=== PATIENT | female | born 1985 | race Caucasian/White ===

== ENCOUNTER 2018-11-30 03:29 | Inpatient (IN) | payer OTHER ==
[~2018-11-30] VITALS: Ht 165.1 cm; Wt 75.6 kg
[2018-11-30 03:42] VITALS: BP 116/70; PULSE 69; RESP 17; Ht 165.1 cm; Wt 75.6 kg
[2018-11-30] MEDS ORDERED: LACTATED RINGER'S 1,000 ML IV PRN (03:44)
[2018-11-30] MEDS ORDERED: BUTORPHANOL 2 MG INJ IV PRN (04:00)
[2018-11-30] MEDS ORDERED: MISOPROSTOL 200 MCG TAB PR PRN ×2 (04:00→17:30)
[2018-11-30] MEDS ORDERED: OXYTOCIN 30 UNITS/LR 500 ML IV PRN ×2 (04:00→17:30)
[2018-11-30] MEDS ORDERED: METHYLERGONOVINE 0.2 MG INJ IM PRN ×2 (04:00→17:30)
[2018-11-30] MEDS ORDERED: CARBOPROST 250 MCG INJ IM PRN ×2 (04:00→17:30)
[2018-11-30] MEDS ORDERED: OXYTOCIN 30 UNITS/LR 500 ML IV SCH ×3 (04:00)
[2018-11-30] MEDS ORDERED: LIDOCAINE 1% (MPF) 30 ML INJ INJ PRN (04:00)
[2018-11-30] MEDS ORDERED: NALOXONE (0.4 MG/ML) INJ IV PRN (04:30)
[2018-11-30] MEDS ORDERED: FENTAnyl 2MCG/ML-ROPIV 0.2% 100 ML BAG EPI SCH (04:30)
--- NOTE | 2018-11-30 04:30 | PREAC ---
Date/Time of Note Date/Time of Note DATE: 11/30/18 TIME: Anesthesia Eval and Record Evaluation Time Pre-Procedure Interview DATE: 11/30/18 TIME: : Age 33 Sex female NPO: Other (na ) Preoperative diagnosis labor pain Planned procedure epidural Past Medical History Past Medical History: Includes Recreational drugs: Marijuana Surgery & Anesthesia Issues No known issue Meds Anticoagulation: No Beta Nael within 24 hr: No Reason Beta Nael not given: Pt. not on B-Nael Current Medications Lactated Ringer's 1,000 ml @ 125 mls/hr Q8H IV ; Start 11/30/18 at 03:44 Butorphanol Tartrate (Stadol) 2 mg Q2H PRN IV .PAIN SCALE 6-10; Start 11/30/18 at 04:00 Lidocaine (Xylocaine 1% (Mpf)) 30 ml ONCE PRN INJ .EPISIOTOMY; Start 11/30/18 at 04:00 Oxytocin/Lactated Ringer's 500 ml @ 500 mls/hr ONCE POST IV ; Start at 04:00 Oxytocin/Lactated Ringer's 500 ml @ 125 mls/hr POST IV ; Start 11/30/18 at 04:00 Lactated Ringer's 1,000 ml @ 2,000 mls/hr Q30M PRN IV .ANESTHESIA Last administered on 11/30/18at 04:05; Admin Dose 2,000 MLS/HR; Start 11/30/18 at 03:44 Oxytocin/Lactated Ringer's 500 ml @ 0 mls/hr ONCE PRN IV .VAGINAL BLEEDING; Start 11/30/18 at 04:00 Methylergonovine Maleate (Methergine) 0.2 mg ONCE PRN IM .VAGINAL BLEEDING; Start 11/30/18 at 04:00 Carboprost Tromethamine (Hemabate) 250 mcg ONCE PRN IM .VAGINAL BLEEDING; Start 11/30/18 at 04:00 Misoprostol (Cytotec) 1,000 mcg ONCE PRN IN .VAGINAL BLEEDING; Start 11/30/18 at 04:00 Oxytocin/Lactated Ringer's 500 ml @ 0 mls/hr FOR AUGMENTATION IV ; Start 11/30/18 at 04:00 Meds reviewed: Yes Allergies Coded Allergies: No Known Allergy (Unverified , 11/30/18) Allergies Reviewed: Yes Labs/Studies Labs Reviewed: Reviewed by anesthesiologist Result Diagram: 11/30/18 0400 Laboratory Tests 11/30/18 04:00 test: N/A Pre-procedure Exam Last vitals Vital Signs Date Temp Pulse Resp B/P (MAP) Pulse Ox O2 O2 Flow FiO2 Time Delivery Rate 11/30/18 98.2 69 17 116/70 Room Air 03:42 (85) Airway: Adequate mouth opening, Adequate thyromental dist Mallampati: Mallampati III Teeth: Normal Lung: Normal Heart: Normal ASA Physical Status ASA physical status: 2 Emergency: None Pre-operative Attestations Prior to commencing anesthesia and surgery, the patient was re-evaluated, there was verification of: *The patient's identity *The results of appropriate recent lab work and preoperative vital signs *The above evaluation not changing prior to induction *Anesthetic plan, risk benefits, alternative and complications discussed with patient/family; questions answered; patient/family understands, accepts and wishes to proceed. DOUGLAS BUSH DO Nov 30, 2018 04:30
[2018-11-30] MEDS ORDERED: FENTAnyl 2MCG/ML-ROPIV 0.2% 100 ML ONE (04:33)
[2018-11-30] MEDS ORDERED: KETOROLAC 30 MG INJ ONE (04:34)
--- NOTE | 2018-11-30 06:26 | PAC ---
Date/Time of Note Date/Time of Note DATE: 11/30/18 TIME: 06:26 Post-Anesthesia Notes Post-Anesthesia Note Last documented vital signs Vital Signs Date Temp Pulse Resp B/P (MAP) Pulse Ox O2 O2 Flow FiO2 Time Delivery Rate 11/30/18 98.2 69 17 116/70 Room Air 03:42 (85) Activity: WNL Respiratory function: WNL Cardiovascular function: WNL Mental status: Baseline Pain reasonably controlled: Yes Hydration appropriate: Yes Nausea/Vomiting absent: Yes DOUGLAS BUSH DO Nov 30, 2018 06:26
[2018-11-30] MEDS: LACTATED RINGER'S 1,000 ML IV SCH ×2 (07:04→11:06)
--- NOTE | 2018-11-30 07:57 | HP ---
Date/Time of Note Date/Time of Note DATE: 11/30/18 TIME: 07:49 OB - History Hx of Present Free Text/Dictation 32 y.0 at 40w1d cmae in c/o UC's2-5min apart with intact membrane . initial VE 380/-2 CAT I tracing GBS neg admitted for expectant management. Chief Complaint: uc's Estimated Due Date: Nov 29, 2018 : 3 Para: 1 Spontaneous : 0 Therapeutic : 1 Care: Other Ultrasounds: Other Obstetrical Complications: None Medical Complications: None Other Concerns: positive THC Past Family/Social History * Past Medical, Surgical, Family and Obstetric Histories reviewed from chart. Blood Type: O+ Rubella: not immune RPR/VDRL: Negative GBS Status: Negative HBsAG: Negative OB Admission Exam Vital Signs Vital Signs Vital Signs Date Temp Pulse Resp B/P (MAP) Pulse Ox O2 O2 Flow FiO2 Time Delivery Rate 11/30/18 98.2 69 17 116/70 Room Air 03:42 (85) Physical Exam HEENT: WNL Heart: Rhythm Normal Lungs: Clear, Equal Abdomen: WNL Extremities: Normal Reflexes: Normal Cervical Dilatation: 3cm Effacement: 75% Station: -2 Membranes: Intact Amniotic Fluid: Unevaluable Heart Rate: 120's Accelerations: Accelerations Present Decelerations: No Decelerations Varibility: Moderate Contractions on Admission: < 5 Minutes Apart Intensity: Firm Last 72 hours Lab Results CBC & BMP 11/30/18 04:00 OB Assessment/Plan Reason for admission: active labor Other Assessment: IUP 40w1d Plan: Expectant Management JOANN CHEW MD Nov 30, 2018 07:57
--- NOTE | 2018-11-30 16:10 | LDN ---
Date/Time of Note Date/Time of Note DATE: 11/30/18 TIME: 16:05 Delivery Summary 32 years old -0-1-1 with single intrauterine at 40 weeks and 1 day with a NABOR of 11/29/2018 delivered a viable female over first-degree vaginal laceration. Nose and mouth suctioned. Rest of body delivered. Cord clamp and caught after stopping pulsation. Baby given to the resuscitation team. Placenta delivered spontaneously and intact. Laceration repaired with 3-0 Vicryl. Patient tolerated procedure well Time of delivery 14:52 Weight 6 pounds 15 ounces - 3160 g Height 20 inches 8 at 1 minutes and 9 at 5 minutes EBL 150 mL Weeks of Gestation 40 weeks and one day Placenta Delivered: Spontaneously Meconium: Light Episiotomy: No Estimated blood loss: 150 Sponge & Needle done & correct: Yes All needle counts correct: Yes Any foreign bodies felt in the: No Delivery Information Sex Infant Sex: female Apgars 1 Minute: 8 5 Minute: 9 10 Minute: 10 Suctioning Nose & mouth suctioned at bernardo: Yes Umbilical Cord Umbilical cord with: 3 Vessels Cord presentations: no nuchal cord Cord Blood was obtained: Yes Mother & Baby Disposition Disposition Mom & Baby to Maternity; Good: Yes AICHA RIDLEY Nov 30, 2018 16:10
[2018-11-30] MEDS ORDERED: MINERAL OIL LIGHT 10 ML VIAL TOP ONE (16:30)
[2018-11-30 17:00] VITALS: BP 122/78; PULSE 62; RESP 18
[2018-11-30] MEDS ORDERED: LACTATED RINGER'S 1,000 ML IV* SCH (17:20)
[2018-11-30] MEDS ORDERED: DEXTROSE 5%-LR 1,000 ML IV SCH (17:20)
[2018-11-30] MEDS ORDERED: SENNA/DOCUSATE NA (8.6MG/50MG) TAB PO PRN (17:30)
[2018-11-30] MEDS ORDERED: OXYCODONE/ASPIRIN (4.88/325) TAB PO PRN (17:30)
[2018-11-30] MEDS ORDERED: ZOLPIDEM 5 MG TAB PO PRN (17:30)
[2018-11-30] MEDS ORDERED: WITCH HAZEL/GLYCERIN PAD PR PRN (17:30)
[2018-11-30] MEDS ORDERED: DIBUCAINE 1% 30 GM OINT TOP PRN (17:30)
[2018-11-30] MEDS ORDERED: DIPHENHYDRAMINE 50 MG INJ IV PRN (17:30)
[2018-11-30] MEDS ORDERED: MAGNESIUM HYDROXIDE 30ML CUP PO PRN (17:30)
[2018-11-30] MEDS ORDERED: ACETAMINOPHEN 325 MG TAB PO PRN (17:30)
[2018-11-30] MEDS ORDERED: BENZOCAINE 20% 56 ML SPRAY TOP PRN (17:30)
[2018-11-30] MEDS ORDERED: ONDANSETRON 4 MG INJ IV PRN (17:30)
[2018-11-30] MEDS: IBUPROFEN 600 MG TAB PO SCH (18:21)
[2018-11-30] MEDS: LANOLIN HPA 1 PKT TOP PRN (18:22)
[2018-11-30 20:20] VITALS: BP 111/70; PULSE 52; RESP 18
[2018-12-01] VITALS: BP 104/62; PULSE 65; RESP 20
[2018-12-01] MEDS: IBUPROFEN 600 MG TAB PO SCH ×5 (00:13→23:35)
[2018-12-01 04:00] VITALS: BP 126/72; PULSE 69; RESP 18
[2018-12-01] MEDS: LANOLIN HPA 1 PKT TOP PRN (05:51)
[2018-12-01 08:00] VITALS: BP 109/55; PULSE 69; RESP 18
[2018-12-01 12:00] VITALS: BP 137/75; PULSE 63; RESP 18
--- NOTE | 2018-12-01 12:37 | PN ---
Date/Time of Note Date/Time of Note DATE: 12/01/18 TIME: 12:36 OB Subjective Subjective Subjective PPD# 1 Patient is doing well. She denies nausea, vomiting, shortness of breath, chest pain, headache. She has been ambulating without difficulty, tolerating regular diet. Pain is well controlled on current medications OB Objective Objective Objective VS - Last 72 Hours, by Label Date Temp Pulse Resp B/P (MAP) Pulse Ox O2 O2 Flow FiO2 Time Delivery Rate 12/01/18 98.0 69 18 109/55 Room Air 08:00 (73) 12/01/18 98.0 69 18 126/72 Room Air 04:00 (90) 12/01/18 98.2 65 20 104/62 Room Air 00:00 (76) 11/30/18 98.0 52 18 111/70 Room Air 20:20 (84) 11/30/18 98.4 62 18 122/78 Room Air 17:00 (93) 11/30/18 98.2 69 17 116/70 Room Air 03:42 (85) General: AAO X 3, comfortable, NAD, appropriate mood and affect. ABD: +BS. Soft, non-tender. Uterus 2 cm below umbilicus Flank: No CVA tenderness (B/L) LE: Mild edema. No clubbing, cyanosis, thigh or calf tenderness (B/L). Homans 'sign is negative OB Assessment/Plan Other plan: 32 years old 3 para 2-0-1-2 s/p normal vaginal delivery at 40 weeks and 1 day. PPD#1 - AF, VSS - Baby is doing well, at bed side. She is bonding well - Contraception methods with R/B/A/FR discussed - Continue care - Discharge home tomorrow - Rx and instruction given - Follow up in 2 and 6 weeks at clinic AICHA RIDLEY Dec 01, 2018 12:37
[2018-12-01 17:00] VITALS: BP 126/75; PULSE 62; RESP 18
[2018-12-01 20:00] VITALS: BP 127/83; PULSE 67; RESP 19
[2018-12-02 03:50] VITALS: BP 129/77; PULSE 63; RESP 19
[2018-12-02] MEDS: IBUPROFEN 600 MG TAB PO SCH ×2 (05:28→12:30)
[2018-12-02 08:00] VITALS: BP 120/65; PULSE 51; RESP 20
[2018-12-02] MEDS ORDERED: DIPHTH/TET/ACEL PERTUSS (ADULT) 0.5 ML VIAL IM* ONE (09:00)
[2018-12-02] MEDS ORDERED: MEASLES,MUMPS,RUBELLA VACCINE INJ SC* ONE (09:00)
--- NOTE | 2018-12-02 18:37 | DS ---
Date/Time of Note Date/Time of Note DATE: 12/02/18 TIME: 18:37 Obstetrical Discharge Record Final Diagnosis Final Diagnosis: Term delivered Other Final Diagnosis Subjective: Tolerating regular diet. Voiding. Ambulating. Vaginal bleeding within normal limits. Breast and bottlefeeding. Objective: Vital signs within normal limits. H/H: 11. General: No apparent distress. Breast: Normal. Fundus at umbilicus. Extremities nontender to palpation. Assessment/plan: 1. AWU-44-ayds-old G3, P1 presented at 40 weeks and 1 day active labor. Delivered via vaginal delivery. Her hospital course was uncomplicated. 2. Rubella nonimmuneMMR Disposition: Home in stable condition follow-up in 6 weeks Condition on Discharge Physical Assessment Patient Condition: Stable MILESTONE,WINIFRED CARL Dec 02, 2018 18:37
--- NOTE | 2018-12-03 16:13 | DELSUM ---
Delivery Summary A-C Datetime Report Generated by CPN: 12/03/2018 16:12 DELIVERY PERSONNEL [employer]: Say, Lynda MATERNAL INFORMATION Delivery Anesthesia: Epidural Medications in Delivery: LR with 30 Units Pitocin Delivery QBL (ml): 150 Placenta Cultured: No Maternal Complications: None Other Maternal Complications: Marijuana positive [facility] LABOR SUMMARY EDC: 11/29/2018 00:00 No. Babies in Womb: 1 Attempted: No Labor Anesthesia: Epidural LABOR INFORMATION Reason for Induction: Not Applicable Onset of Labor: 11/30/2018 00:30 Complete Dilatation: 11/30/2018 11:01 Oxytocin: Augmentation Group B Beta Strep: Negative Antibiotics # of Doses: 0 Steroids Given: None Reason Steroids Not Administered: Not Applicable MEMBRANES Membranes Rupture Method: Spontaneous Rupture of Membranes: 11/23/2018 10:12 Length of Rupture (hr): 172.67 Amniotic Fluid Color: Clear Amniotic Fluid Amount: Small Amniotic Fluid Odor: None STAGES OF LABOR Stage 1 hr: 10 Stage 1 min: 31 Stage 2 hr: 3 Stage 2 min: 51 Stage 3 hr: 0 Stage 3 min: 3 Total Time in Labor hr: 14 Total Time in Labor min: 25 VAGINAL DELIVERY Episiotomy: None Laceration Extension: First Degree Laceration Type: Vaginal Laceration Repair: Yes (Annotations: Data stored by N on behalf of user) Initial Vag Sponge Count: 10 Final Vag Sponge Count: 10 Initial Vag Sharps Count: 1 Final Vag Sharps Count: 2 Sponge Count Correct: Yes Sharps Count Correct: Yes BABY A INFORMATION Delivery Date/Time: 11/30/2018 14:52 Method of Delivery: Vaginal Born in Route : No : N/A Forceps: N/A Vacuum Extraction: N/A Shoulder Dystocia : N/A SHOULDER DYSTOCIA BABY A Delivery Date/Time: 11/30/2018 14:52 PRESENTATION/POSITION BABY A Presentation: Cephalic Cephalic Presentation: Vertex Vertex Position: Left Occipital Posterior Breech Presentation: N/A PLACENTA INFORMATION BABY A Placenta Delivery Time : 11/30/2018 14:55 Placenta Method of Delivery: Spontaneous Placenta Status: Delivered SCORES BABY A Heart Rate 1 min: >100 bpm Resp Effort 1 min: Good Cry Reflex Irritability 1 min: Cough/Sneeze/Pulls Away Muscle Tone 1 min: Active Motion Color 1 min: Blue/Pale Resuscitation Effort 1 min: Tactile Stimulation SCORE 1 MIN: 8 Heart Rate 5 min: >100 bpm Resp Effort 5 min: Good Cry Reflex Irritability 5 min: Cough/Sneeze/Pulls Away Muscle Tone 5 min: Active Motion Color 5 min: Body [place], Extremit Blue Resuscitation Effort 5 min: Tactile Stimulation SCORE 5 MIN: 9 INFORMATION BABY A Gestational Age at Delivery: 40.1 Gestational Status: Full Term- 39- 40.6 Weeks Outcome : Liveborn, with signs of life Condition : Stable Sex: Female IDENTIFICATION/MEDS BABY A ID Band Number: [id number] ID Band Location: Right Leg; Left Arm Sensor Applied: Yes Sensor Number: [id number] Sensor Location : Cord Clamp Vitamin K Given : Not Given Erythromycin Given: Not Given WEIGHT/LENGTH BABY A Infant Birthweight (gm): 3160 Weight (lb): 6 Weight (oz): 15 Infant Length (in): 20.00 Length (cm): 50.80 CORD INFORMATION BABY A No. Cord Vessels: 3 Nuchal Cord : N/A Cord Blood Taken: Yes Infant Suction: Mouth; Nose ASSESSMENT BABY A Complications: Meconium; None Infant Complications- Other: light meconium Physical Findings at Delivery: Within Normal Limits Respirations: Appears Normal Measurement Operator/ALS Called : Yes Care By: Heather Renteria RN/Chip RT Transferred To: Remains with Mother
== END 2018-12-02 15:40 | disposition home or self-care (01) | DRG 807 ==
LOC: OBT 03:29 → L-D 03:30 → OBT 03:45 → L-D 03:45 → PP1 17:30
PROVIDERS: ADMIT Obstetrics & Gynecology; ATTEND Obstetrics & Gynecology
PROC: 10E0XZZ Delivery of Products of Conception, External Approach (ICD-10-PCS; principal; 2018-11-30)
PROC: 0UQGXZZ Repair Vagina, External Approach (ICD-10-PCS; 2018-11-30)
DX: O71.4 Obstetric high vaginal laceration alone (principal); Z37.0 Single live birth; Z3A.40 40 weeks gestation of pregnancy
CPT/HCPCS: 62322; 80307; 85025; 85610; 85730; 86592; 86850; 86900; 86901; 87340; 90715; 99464; G0463; J1885; J2590; J3010; J7120; J7121

== ENCOUNTER 2018-12-08 02:44 | Emergency (ER) | payer OTHER ==
[~2018-12-08] VITALS: Ht 165.1 cm; Wt 68.9 kg
[2018-12-08 02:50] VITALS: Ht 165.1 cm; Wt 68.9 kg
[2018-12-08] MEDS ORDERED: KETOROLAC 60 MG INJ IM STA (04:31)
[2018-12-08] MEDS ORDERED: NITROGLYCERIN 2% 1 GM OINT PKT TD ONE (05:00)
[2018-12-08] MEDS ORDERED: LIDOCAINE 4% CR TOP ONE (05:00)
[2018-12-08] MEDS ORDERED: LIDOCAINE 5% 35 GM OINT TOP ONE (05:00)
[2018-12-08] MEDS ORDERED: LIDO30CR3 TP (05:42)
[2018-12-08] MEDS ORDERED: IBUP-1542 PO (05:42)
[2018-12-08] MEDS ORDERED: NITROL TD (05:42)
[2018-12-08 05:55] VITALS: BP 101/68; PULSE 73; RESP 20
--- NOTE | 2018-12-08 06:01 | ERD ---
ER Documentation Chief Complaint Chief Complaint RECTAL PAIN X'S 7 DAYS S/P VAG DELIVERY OF INFANT HPI History of Present Illness: 33-year-old female who denies a past medical history coming in today due to complaint of rectal pain for 7 days. Patient reports having a vaginal delivery last week and has had rectal pain since giving . Patient denies any other associated symptoms At home pharmacological/nonpharmacological treatment for symptoms: Preparation H, Tucks Denies social concerns; Denies recent foreign travel ROS All systems reviewed and are negative except as per history of present illness. Medications Home Meds Active Scripts Ibuprofen* (Motrin*) 600 Mg Tab, 600 MG PO Q6H PRN for PAIN AND/OR INFLAMMATION, #30 TAB Prov:DIDI SILVA NP 12/08/18 Lidocaine (Lmx 5) 30 Gm Cream.gm., 30 GM TP Q4 PRN for HEMORROID PAIN/ITCHING, #1 TUB 1 Refill Prov:DIDI SILVA NP 12/08/18 Nitroglycerin* (Nitro-Bid* Oint (30gm)) 1 Inch Oint, 1 INCH TD Q8 PRN for HEMORROID PAIN/ITCHING, #1 TUB Do not use bare hands to apply. Must use cotton tip applicator to apply to prevent systemic reaction including hypotension (LOW blood pressure). Prov:DIDI SILVA NP 12/08/18 Allergies Allergies: Coded Allergies: No Known Allergy (Unverified , 11/30/18) PMhx/Soc Medical and Surgical Hx: pt denies Medical Hx, pt denies Surgical Hx History of Surgery: No Anesthesia Reaction: No Hx Neurological Disorder: No Hx Respiratory Disorders: No Hx Cardiac Disorders: No Hx Psychiatric Problems: No Hx Miscellaneous Medical Probl: No Hx Alcohol Use: No Hx Substance Use: No Hx Tobacco Use: No Smoking Status: Never smoker FmHx Family History: No diabetes, No coronary disease Physical Exam Vitals Vital Signs Date Temp Pulse Resp B/P (MAP) Pulse Ox O2 O2 Flow FiO2 Time Delivery Rate 12/08/18 97.8 93 18 144/96 96 02:50 (112) Physical Exam Const: Mild acute distress, afebrile, patient grimacing, patient standing up and rocking back and forth Head: Atraumatic Eyes: Normal Conjunctiva ENT: Normal External Ears, Nose and Mouth. Neck: Full range of motion. No meningismus. Resp: Clear to auscultation bilaterally Cardio: Regular rate and rhythm, no murmurs Abd: Soft, non tender, non distended. No guarding, no masses, no rigidity Skin: No petechiae or rashes Back: No midline or flank tenderness Ext: No cyanosis, or edema Neur: Awake and alert x3, speaking in clear sentences, no focal deficits or facial asymmetry Psych: Normal Mood and Affect Genital: External hemorrhoids noted, no thrombosis, erythema, no purple or discoloration Results 24 hrs Current Medications Medications Dose Sig/Melly Start Time Status Last (Trade) Ordered Route PRN Stop Time Admin Dose Reason Admin Ketorolac 60 mg ONCE STAT 12/08/18 DC 12/08/18 Tromethamine IM 04:31 12/08/18 04:48 (Toradol) 04:38 0.5 inch ONCE ONCE 12/08/18 DC 12/08/18 Nitroglycerin TD 05:00 12/08/18 04:48 05:01 (Nitroglyceri n 2% Oint) Lidocaine 1 applic ONCE ONCE 12/08/18 DC (Lmx 4% Plus) TOP 05:00 12/08/18 05:00 Lidocaine 1 applic ONCE ONCE 12/08/18 DC 12/08/18 (Lidocaine TOP 05:00 12/08/18 04:59 5% Oint) 05:01 Procedures/MDM ED COURSE: ED course includes a thorough examination and history. The patient was stable throughout ED course. I kept the patient and/or family informed of laboratory and diagnostic imaging results throughout the ED course. LABS: None MEDICATIONS GIVEN IN ER: Topical nitroglycerin, topical lidocaine, ketorolac Patient tolerated medication well with no adverse reactions. Patient reported improvement in pain. DIAGNOSTIC IMAGING: Read by radiologist. None PROCEDURES: None. MEDICAL DECISION MAKING: Low suspicion for life-threatening medical emergency. Otherwise healthy patient presenting with constellation of symptoms likely representing acute hemorrhoid as characterized by history, physical exam findings. Patient reassessment @ 0547: Patient with decrease in pain after medication administration. No acute distress noted. No physical signs of pain. Patient hemodynamically stable. No respiratory distress, otherwise relatively well appearing and nontoxic. Disposition given. Patient educated on diagnoses, prescriptions, follow-up care, return precautions. Strict return precautions given for worsening condition; questions answered discharge. Patient verbalizes understanding of discharge instructions. PRESCRIPTIONS FOR HOME: Topical nitroglycerin, topical lidocaine,-Ibuprofen DISPOSITION: DISCHARGE At this time, patient is stable for discharge and outpatient management. I have instructed the patient to follow-up with his/her primary care physician in 1-2 days. I have discussed with the patient the possibility of needing to see a specialist for further workup and imaging studies if symptoms persist. I have instructed the patient to promptly return to the ER for any new or worsening symptoms including increased pain, fever, nausea, vomiting, weakness or LOC. The patient and/or family expressed understanding of and agreement with this plan. All questions were answered. Home care instructions were provided. DISCLAIMER: Inadvertent spelling and grammatical errors are likely due to EHR/dictation software use and do not reflect on the overall quality of patient care. Also, please note that the electronic time recorded on this note does not necessarily reflect the actual time of the patient encounter. Departure Diagnosis: Primary Impression: Acute hemorrhoid Condition: Stable Patient Instructions: Treating Hemorrhoids: Self-Care, Hemorrhoids, Lidocaine Hydrochloride, Hydrocortisone Acetate Medicated topical pledget Referrals: [facility] YOU HAVE RECEIVED A MEDICAL SCREENING EXAM AND THE RESULTS INDICATE THAT YOU DO NOT HAVE A CONDITION THAT REQUIRES URGENT TREATMENT IN THE EMERGENCY DEPARTMENT. FURTHER EVALUATION AND TREATMENT OF YOUR CONDITION CAN WAIT UNTIL YOU ARE SEEN IN YOUR DOCTORS OFFICE WITHIN THE NEXT 1-2 DAYS. IT IS YOUR RESPONSIBILITY TO MAKE AN APPOINTMENT FOR FOLOW-UP CARE. IF YOU HAVE A PRIMARY DOCTOR --you should call your primary doctor and schedule an appointment IF YOU DO NOT HAVE A PRIMARY DOCTOR YOU CAN CALL OUR PHYSICIAN REFERRAL HOTLINE AT IF YOU CAN NOT AFFORD TO SEE A PHYSICIAN YOU CAN CHOSE FROM THE FOLLOWING [facility] [address] [facility] [address] [facility] [facility] [address] [facility] [address] [facility] [address] [facility]. [facility]. [address] [facility] YOU HAVE RECEIVED A MEDICAL SCREENING EXAM AND THE RESULTS INDICATE THAT YOU DO NOT HAVE A CONDITION THAT REQUIRES URGENT TREATMENT IN THE EMERGENCY DEPARTMENT. FURTHER EVALUATION AND TREATMENT OF YOUR CONDITION CAN WAIT UNTIL YOU ARE SEEN IN YOUR DOCTORS OFFICE WITHIN THE NEXT 1-2 DAYS. IT IS YOUR RESPONSIBILITY TO MAKE AN APPOINTMENT FOR FOLOW-UP CARE. IF YOU HAVE A PRIMARY DOCTOR --you should call your primary doctor and schedule and appointment IF YOU DO NOT HAVE A PRIMARY DOCTOR YOU CAN CALL OUR PHYSICIAN REFERRAL HOTLINE AT . IF YOU CAN NOT AFFORD TO SEE A PHYSICIAN YOU CAN CHOSE FROM THE FOLLOWING [facility] INSTITUTIONS: [facility] [address] [place] [address] [facility] [address] [place] [address] [facility] + [facility] [address] [place] [address] Additional Instructions: Thank you very much for allowing us to participate in your care. Your health and safety is our top priority at [facility]. It is important to read all discharge instructions and education provided in your discharge packet. Call your primary care doctor TOMORROW for an appointment during the next 2-4 days and bring all the information and medications prescribed. Have prescriptions filled and follow precisely the directions on the label. --Ibuprofen is a medication that will help with pain/inflammation. At the dosage of 600 to 800 mg, this will help with inflammation/swelling. Take this medication as prescribed. -Lidocaine is a numbing agent. Uses medication as prescribed. -Nitroglycerin Is a vasodilator. It helps to relax the muscles around the blood vessels to help decrease pain. If the symptoms get worse and your provider is unavailable, return to the Emergency Department immediately. DIDI SILVA NP Dec 08, 2018 06:01
== END 2018-12-08 06:03 | disposition home or self-care (01) ==
LOC: FTE 02:44
DX: O87.2 Hemorrhoids in the puerperium (principal)
CPT/HCPCS: 96372; J1885; Z7502; Z7610